=== PATIENT | female | born 1985 | race Caucasian/White ===

== ENCOUNTER 2019-09-09 13:59 | Emergency (ER) | payer OTHER ==
[~2019-09-09] VITALS: Ht 170.2 cm; Wt 64.0 kg
[~2019-09-09 13:59] MED LIST: IBUP-1574 PO; NAPR-56 PO
[2019-09-09 14:07] VITALS: BP 106/63
[2019-09-09 14:33] LABS: URINE HCG NEGATIVE (NEG)
[2019-09-09 14:40] LABS: CLARITY,URINE TURBID (Clear); COLOR,URINE YELLOW (Yellow); GLUCOSE, URINE 100 mg/dl (Neg); KETONES,URINE NEGATIVE (Neg); LEUKOCYTE ESTERASE ,URINE LARGE (Neg); NITRITES, URINE POSITIVE (Neg); OCCULT BLOOD,URINE MODERATE (Neg); PROTEIN,URINE 30 mg/dl (Neg); UROBILINOGEN,URINE 0.2 E.U/dL (0.2-1.0)
[2019-09-09 14:42] LABS: UA COLLECTION TYPE CLN CATCH MIDSTREAM
[2019-09-09] MEDS ORDERED: CEPH500C5 PO (14:48)
[2019-09-09 14:54] LABS: BACTERIA,URINE 3+ /HPF (Neg); MUCUS STRANDS MODERATE /LPF (Neg); SQUAMOUS EPITHELIAL CELL,UR FEW /LPF (FEW); WBC,URINE TNTC /HPF (0-4)
[2019-09-09 14:55] LABS: RBC,URINE 0-2 /HPF (0-2)
== END 2019-09-09 14:58 | disposition home or self-care (01) ==
LOC: ER 13:59
DX: N39.0 Urinary tract infection, site not specified (principal); F17.200 Nicotine dependence, unspecified, uncomplicated; F15.90 Other stimulant use, unspecified, uncomplicated; Z79.899 Other long term (current) drug therapy
CPT/HCPCS: 81001; 81025; 87077; 87088; 87186; 99283